=== PATIENT | female | born 1950 | race Caucasian/White ===

== ENCOUNTER → 2017-05-20 | Outpatient (CLI) | payer OTHER ==
[~2017-05-20] MED LIST: ASPEC81 PO; CHOL100010 PO; CLCC1250 PO; CLON1TAB3 PO; CLOP1TAB15 PO; FENO48TA9 PO; LSX20 PO; ROPI2TAB6 PO; SIMV10TA2 PO
--- NOTE | 2017-05-20 13:45 | MAMMOGRAPHY REPORT ---
BILATERAL DIGITAL SCREENING MAMMOGRAM TOMOSYNTHESIS WITH CAD: 05/20/2017 TECHNIQUE: Breast tomosynthesis in addition to standard 2D mammography was performed. Current study was also evaluated with a Computer Aided Detection (CAD) system. COMPARISON: Comparison is made to exams dated: 06/04/2016 ultrasound, 05/19/2016 mammogram, 05/14/20 15 mammogram, 05/10/2014 mammogram, 05/09/2013 mammogram, and 05/07/2012 mammogram - [facility]. BREAST COMPOSITION: The tissue of both breasts is heterogeneously dense, which may obscure small mas ses. FINDINGS: No suspicious masses, calcifications, or areas of architectural distortion are noted in ei ther breast. There has been no significant interval change compared to prior exams. Linear scar trent ers denote scars on bilateral breasts. There are stable postsurgical and postbiopsy changes in the r ight upper outer quadrant. Bilateral benign-appearing calcifications are not significantly changed. Nodular asymmetry in the left inferior breast is stable. IMPRESSION: ACR BI-RADS CATEGORY 2: BENIGN There is no mammographic evidence of malignancy. A 1 year screening mammogram is recommended. The pa tient will receive written notification of the results. Approximately 10% of breast cancers are not detected with mammography. A negative mammographic report should not delay biopsy if a clinically suggestive mass is present. Kait Cardoso M.D. /:05/20/2017 12:40:39 Customer Support Advisor: Elayne MORA)(Ap), [facility] letter sent: Normal 1/2 BI-RADS Code: ACR BI-RADS Category 2: Benign
== END | disposition home or self-care (01) ==
LOC: C.MAMM 08:44
PROVIDERS: ATTEND Internal Medicine
DX: Z12.31 Encounter for screening mammogram for malignant neoplasm of breast (principal)

== ENCOUNTER 2017-10-30 15:41 | Emergency (ER) | payer OTHER ==
[~2017-10-30] VITALS: Ht 160 cm; Wt 79.8 kg
[2017-10-30 15:49] VITALS: TEMP 36.8; Ht 160 cm; Wt 79.8 kg
[2017-10-30] MEDS ORDERED: CHOL100010 PO (16:07)
[2017-10-30] MEDS ORDERED: ASPI-319 PO (16:07)
[2017-10-30] MEDS ORDERED: CALC1WAF PO (16:07)
[2017-10-30] MEDS ORDERED: OPTIRAY 320 IV PRN (16:15)
--- NOTE | 2017-10-30 16:16 | EMERGENCY ROOM VISIT NOTE ---
ED Visit Note First contact with patient: 15:55 I have seen and examined this patient with Asif Abarca and generally agree with the treatment plan as discussed. Current/Historical Medications Scheduled Aspirin Enteric Coated (Ecotrin Or Generic), 81 MG PO DAILY Calcium Carbonate (Calcium Carbonate), 500 MG PO DAILY Cholecalciferol (Vitamin D), 1,000 INTER.UNIT PO DAILY Clonazepam (Klonopin), 1 MG PO HS Fenofibrate (Tricor), 48 MG PO DAILY Ropinirole (Requip), 1 MG PO QPM Simvastatin (Zocor), 10 MG PO HS Allergies Coded Allergies: No Known Allergies (Unverified , 10/30/17) Vital Signs Date Time Temp Pulse Resp B/P (MAP) Pulse Ox O2 Delivery O2 Flow Rate FiO2 10/30/17 15:49 36.8 106 20 113/69 93 Room Air Laboratory Results Test 10/30/17 16:05 Departure Information Referrals Jose Antonio Storey D.O. (PCP) Patient Instructions My [facility]
[2017-10-30 16:51] VITALS: O2SAT 92
[2017-10-30 16:57] LABS: BASO % 0.5 %; BASO ABS # 0.04 K/uL (0-0.2); EOS % 1.7 %; EOS ABS # 0.13 K/uL (0-0.5); HEMATOCRIT 45.8 % (37-47); HEMOGLOBIN 16.3 g/dL (12.0-16.0); IG# 0.04 K/uL (0.00-0.02); LYMPH ABS # 2.82 K/uL (1.2-3.4); MEAN CELL VOLUME 85.6 fL (80-100); MEAN CORPUSCULAR HEMOGLOBIN 30.5 pg (25-34); MEAN CORPUSCULAR HGB CONC 35.6 g/dl (32-36); MEAN PLATELET VOLUME 9.7 fL (7.4-10.4); MONO % 7.7 %; NEUT % 53.6 %; NEUT ABS # 4.21 K/uL (1.4-6.5); PLATELET COUNT 218 K/uL (130-400); RED CELL DISTRIBUTION WIDTH CV 14.2 % (11.5-14.5); RED CELL DISTRIBUTION WIDTH SD 44.2 fL (36.4-46.3); WHITE BLOOD COUNT 7.84 K/uL (4.8-10.8)
[2017-10-30 17:06] LABS: PTT PATIENT 24.9 SECONDS (21.0-31.0)
[2017-10-30 17:19] LABS: ALBUMIN 4.1 gm/dl (3.4-5.0); CALCIUM 9.1 mg/dl (8.5-10.1); CREATININE 1.14 mg/dl (0.60-1.20); POTASSIUM 3.7 mmol/L (3.5-5.1)
[2017-10-30 17:22] LABS: TOTAL PROTEIN 8.1 gm/dl (6.4-8.2)
--- NOTE | 2017-10-30 18:57 | DIAGNOSTIC IMAGING REPORT ---
ABDOMEN AND PELVIS CT WITH IV AND ORAL CONTRAST CT DOSE: 424.06 mGy.cm HISTORY: Acute left-sided abdominal pain. L sided abd pain, black stools, watery stools. diverticulosis TECHNIQUE: Multiaxial CT images of the abdomen and pelvis were performed following the use of intravenous and oral contrast. A dose lowering technique was utilized adhering to the principles of ALARA. COMPARISON STUDY: None. FINDINGS: Mild subsegmental bibasilar atelectasis. No pneumatosis or pneumoperitoneum. Imaged inferior cardiac chambers are mildly enlarged. Trace pericardial effusion. Prior cholecystectomy. Hepatic steatosis. No focal hepatic mass lesions or intrahepatic biliary ductal dilation. Spleen, pancreas and adrenal glands are within normal limits. Bilateral renal cysts. Calcifications of the inferior pole right kidney measuring up to 4 mm suggest calcified septa within the renal cyst or nonobstructing renal calculi. No ureteral calculi or obstructive uropathy. Ureters and bladder are unremarkable. Prior hysterectomy. No adnexal mass lesions. Moderate calcification of the aorta without aneurysm. No bulky adenopathy. Small sliding-type hiatal hernia. No small bowel obstruction. Colonic diverticulosis without acute diverticulitis. Normal appendix. Soft tissues are unremarkable. Bones appear intact. Multilevel facet arthrosis. IMPRESSION: 1. Colonic diverticulosis without diverticulitis. 2. No bowel obstruction or focal bowel wall thickening. 3. Prior cholecystectomy and hysterectomy. 4. Calcifications of the inferior pole right kidney suggest calcified septa of a lower pole cyst or less likely represent nonobstructing nephrolithiasis. No ureteral calculi or hydronephrosis. Electronically signed by: Chinmay Nunez M.D. 10/30/2017 6:55 PM Dictated Date/Time: 10/30/2017 6:49 PM
--- NOTE | 2017-10-30 19:45 | EMERGENCY ROOM VISIT NOTE ---
History First contact with patient: 15:55 Chief Complaint: DIARRHEA Stated Complaint: WATERY/BLACK STOOL Nursing Triage Summary: pt reports diarrhea started 1-2 weeks ago liquid sometimes black denies any n/v . abd tender to uch across lower portion and radiates across lower back History of Present Illness The patient is a 67 year old female who presents to the Emergency Room via private vehicle with complaints of "watery/black stool". The patient states that for the past 2 weeks she has been experiencing dark brown stool that progressed to a small in caliber stool and now black in nature with water. She states that her last colonoscopy was 5 years ago. She denies any bright red blood per rectum. She takes no blood thinners. She notes minimal abdominal pain in the lower quadrants favoring the left side. She rates the pain as a 4/ 10. She denies any chest pain, shortness of breath, fevers, chills, dysuria. Review of Systems A complete 10-point Review of Systems was discussed with the patient, with pertinent positives and negatives listed in the History of Present Illness. All remaining Review of Systems questions can be considered negative unless otherwise specified. Past Medical/Surgical History No pertinent Family History No pertinent Social History Smoking Status: Former Smoker Alcohol Use: none Drug Use: none Marital Status: Housing Status: lives with family Occupation Status: employed Current/Historical Medications Scheduled Aspirin Enteric Coated (Ecotrin Or Generic), 81 MG PO DAILY Calcium Carbonate (Calcium Carbonate), 500 MG PO DAILY Cholecalciferol (Vitamin D), 1,000 INTER.UNIT PO DAILY Clonazepam (Klonopin), 1 MG PO HS Fenofibrate (Tricor), 48 MG PO DAILY Ropinirole (Requip), 1 MG PO QPM Simvastatin (Zocor), 10 MG PO HS Physical Exam Vital Signs Date Time Temp Pulse Resp B/P (MAP) Pulse Ox O2 Delivery O2 Flow Rate FiO2 10/30/17 20:04 86 20 122/78 95 Room Air 10/30/17 18:07 72 16 111/70 93 Room Air 10/30/17 17:30 75 18 132/69 92 Room Air 10/30/17 17:19 81 10/30/17 16:51 86 18 142/76 93 Room Air 10/30/17 16:51 92 Room Air 10/30/17 15:49 36.8 106 20 113/69 93 Room Air Physical Exam VITAL SIGNS - Vital signs and nursing notes were reviewed. Stable and slightly tachycardic. GENERAL - 67-year-old female appearing her stated age who is in no acute distress. Communicates well with provider and answers questions appropriately. SKIN - Without rashes. HEAD - NC/AT. EYES - PERRL with EOMI bilaterally. Sclera anicteric. EARS - No deformities of external structures noted on gross examination bilaterally. NOSE - Midline and without cyanosis. No epistaxis or purulent drainage noted. MOUTH/OROPHARYNX - Without perioral cyanosis. NECK - Neck with FROM. Supple to palpation. No lymphadenopathy noted. No nuchal rigidity. LUNGS - Chest wall symmetric without accessory muscle use, intercostals retractions, or central cyanosis. Normal vesicular breath sounds CTA B/L. No wheezes, rales, or rhonchi appreciated. CARDIAC - RRR with S1/S2. No murmur, rubs, or gallops appreciated. ABDOMEN - Abdominal contour normal without pulsations or visible masses. BS normoactive all four quadrants. Lower abd tenderness noted. No rebound tenderness. No palpable masses, hepatosplenomegaly, or ascites noted. EXTREMITIES - No clubbing or peripheral cyanosis. No pretibial edema present.+5/ 5 strength noted in UE/LE bilaterally. NEUROLOGIC - Cranial nerves II through XII grossly intact. Sensory intact to light touch throughout. PSYCH - A&O, and cooperates fully with examiner. Pt is very pleasant and interacts well with examiner. RECTAL: After obtaining consent, and in the presence of the female nurse I did perform a rectal exam in the patient. Negative exam. Negative Hemoccult. Medical Decision & Procedures ER Provider Diagnostic Interpretation: ABDOMEN AND PELVIS CT WITH IV AND ORAL CONTRAST CT DOSE: 424.06 mGy.cm HISTORY: Acute left-sided abdominal pain. L sided abd pain, black stools, watery stools. diverticulosis TECHNIQUE: Multiaxial CT images of the abdomen and pelvis were performed following the use of intravenous and oral contrast. A dose lowering technique was utilized adhering to the principles of ALARA. COMPARISON STUDY: None. FINDINGS: Mild subsegmental bibasilar atelectasis. No pneumatosis or pneumoperitoneum. Imaged inferior cardiac chambers are mildly enlarged. Trace pericardial effusion. Prior cholecystectomy. Hepatic steatosis. No focal hepatic mass lesions or intrahepatic biliary ductal dilation. Spleen, pancreas and adrenal glands are within normal limits. Bilateral renal cysts. Calcifications of the inferior pole right kidney measuring up to 4 mm suggest calcified septa within the renal cyst or nonobstructing renal calculi. No ureteral calculi or obstructive uropathy. Ureters and bladder are unremarkable. Prior hysterectomy. No adnexal mass lesions. Moderate calcification of the aorta without aneurysm. No bulky adenopathy. Small sliding-type hiatal hernia. No small bowel obstruction. Colonic diverticulosis without acute diverticulitis. Normal appendix. Soft tissues are unremarkable. Bones appear intact. Multilevel facet arthrosis. IMPRESSION: 1. Colonic diverticulosis without diverticulitis. 2. No bowel obstruction or focal bowel wall thickening. 3. Prior cholecystectomy and hysterectomy. 4. Calcifications of the inferior pole right kidney suggest calcified septa of a lower pole cyst or less likely represent nonobstructing nephrolithiasis. No ureteral calculi or hydronephrosis. Electronically signed by: Chinmay Nunez M.D. 10/30/2017 6:55 PM Dictated Date/Time: 10/30/2017 6:49 PM Laboratory Results 10/30/17 16:45 Red Blood Count 5.35, Mean Corpuscular Volume 85.6, Mean Corpuscular Hemoglobin 30.5, Mean Corpuscular Hemoglobin Concent 35.6, Mean Platelet Volume 9.7, Neutrophils (%) (Auto) 53.6, Lymphocytes (%) (Auto) 36.0, Monocytes (%) (Auto) 7.7, Eosinophils (%) (Auto) 1.7, Basophils (%) (Auto) 0.5, Neutrophils # (Auto) 4.21, Lymphocytes # (Auto) 2.82, Monocytes # (Auto) 0.60, Eosinophils # (Auto) 0.13, Basophils # (Auto) 0.04 10/30/17 16:45 Test 10/30/17 16:40 10/30/17 16:45 10/30/17 19:52 Urine Color YELLOW Urine Appearance CLEAR (CLEAR) Urine pH 5.5 (4.5-7.5) Urine Specific Gallagher 1.025 (1.000-1.030) Urine Protein NEG (NEG) Urine Glucose (UA) NEG (NEG) Urine Ketones NEG (NEG) Urine Occult Blood NEG (NEG) Urine Nitrite NEG (NEG) Urine Bilirubin NEG (NEG) Urine Urobilinogen NEG (NEG) Urine Leukocyte Esterase SMALL (NEG) Urine RBC (Auto) /hpf (0-4) Urine RBC 0-4 /hpf (0-4) Urine WBC 1-5 /hpf (0-5) Urine Epithelial Cells >30 /lpf (0-5) Urine Calcium Oxalate Crystals PRESENT (NONE PRSENT) Urine Bacteria NEG (NEG) White Blood Count 7.84 K/uL (4.8-10.8) Red Blood Count 5.35 M/uL (4.2-5.4) Hemoglobin 16.3 g/dL (12.0-16.0) Hematocrit 45.8 % (37-47) Mean Corpuscular Volume 85.6 fL (80-100) Mean Corpuscular Hemoglobin 30.5 pg (25-34) Mean Corpuscular Hemoglobin Concent 35.6 g/dl (32-36) Platelet Count 218 K/uL (130-400) Mean Platelet Volume 9.7 fL (7.4-10.4) Neutrophils (%) (Auto) 53.6 % Lymphocytes (%) (Auto) 36.0 % Monocytes (%) (Auto) 7.7 % Eosinophils (%) (Auto) 1.7 % Basophils (%) (Auto) 0.5 % Neutrophils # (Auto) 4.21 K/uL (1.4-6.5) Lymphocytes # (Auto) 2.82 K/uL (1.2-3.4) Monocytes # (Auto) 0.60 K/uL (0.11-0.59) Eosinophils # (Auto) 0.13 K/uL (0-0.5) Basophils # (Auto) 0.04 K/uL (0-0.2) RDW Standard Deviation 44.2 fL (36.4-46.3) RDW Coefficient of Variation 14.2 % (11.5-14.5) Immature Granulocyte % (Auto) 0.5 % Immature Granulocyte # (Auto) 0.04 K/uL (0.00-0.02) Prothrombin Time 10.4 SECONDS (9.0-12.0) Prothromb Time International Ratio 1.0 (0.9-1.1) Activated Partial Thromboplast Time 24.9 SECONDS (21.0-31.0) Partial Thromboplastin Ratio 1.0 Anion Gap 7.0 mmol/L (3-11) Est Creatinine Clear Calc Drug Dose 49.2 ml/min Estimated GFR () 58.4 Estimated GFR (Non- 50.4 BUN/Creatinine Ratio 13.4 (10-20) Calcium Level 9.1 mg/dl (8.5-10.1) Magnesium Level 2.2 mg/dl (1.8-2.4) Total Bilirubin 0.7 mg/dl (0.2-1) Aspartate Amino Transf (AST/SGOT) 24 U/L (15-37) Alanine Aminotransferase (ALT/SGPT) 49 U/L (12-78) Alkaline Phosphatase 80 U/L (45-117) Total Protein 8.1 gm/dl (6.4-8.2) Albumin 4.1 gm/dl (3.4-5.0) Globulin 4.0 gm/dl (2.5-4.0) Albumin/Globulin Ratio 1.0 (0.9-2) Lipase 169 U/L (73-393) Date/Time Source Procedure Growth Status 10/30/17 19:52 Stool C.difficile Toxin B Gene (PCR) - Final No C. difficile toxin B gene detected Complete Medical Decision Patient was seen and evaluated as above in room A09. Review was performed of nursing notes and vital signs. After obtaining a thorough history and physical examination the above work up was performed. She presents to us today with black watery stools 2 weeks. She is nontoxic on exam and at no point throughout her stay exhibited a surgical abdomen. CBC reveals no leukocytosis. Hemoglobin slightly elevated. Coags normal. She is afebrile. Metabolic panel reveals no evidence of emergent kidney or liver failure. Urine reveals small leukocytes. Epithelial cells. I suspect contaminated sample. She was able to produce stool at the end of her visit here that will be sent for testing. I believe a bland diet is warranted as the CT did not reveal any evidence of acute process. Case was discussed with the attending physician. I felt she was stable for outpatient management. She is to return with worsening. She is to call her family doctor first thing Thursday morning to schedule follow-up. The patient was educated upon management, had questions answered prior to discharge, and was discharged home in good condition. Case was discussed with the attending physician. I attest that I have personally reviewed the patient medication list. I attest that I have reviewed the patient's blood pressure and it was found to be normal. In the evaluation and treatment of this patient the following differential diagnoses were entertained: Diverticulitis, appendicitis, UTI, sepsis, acute intra-abdominal abnormality Impression Primary Impression: Diarrhea Departure Information Dispostion Home / Self-Care Condition GOOD Referrals Jose Antonio Storey D.O. (PCP) Amanda Baugh, DO Patient Instructions ED Diet [place], My [facility] Additional Instructions You have been treated in the Emergency Department your Abdominal Pain and diarrhea. Laboratory results and imaging studies have ruled out any emergent causes for your abdominal pain which would warrant admission or surgery. I do recommend following up with the family doctor and potentially a GI specialist. You may need a colonoscopy. Please call your family doctor first thing Thursday morning to schedule follow-up. I recommend a bland diet. Please refer to the attached handout regarding this. For pain control, you can use the following [id number] medicines (if >12 yo): - Regular strength (325mg/tab) Tylenol (acetaminophen) 2 tabs every 4-6 hours as needed. Do not exceed 12 tablets in a 24 hour period. Avoid taking more than 3 grams (3000 mg) of Tylenol per day. This includes any other sources of acetaminophen you may take on a regular basis. Please be careful taking any ibuprofen. Drink plenty of water and stay well hydrated. As with any trip to the Emergency Department, you should follow-up with your Primary Care Provider from today's visit. Return to the emergency department if your symptoms persist despite treatment plan outlined above or if the following symptoms occur: increased fevers, chills , worsening nausea/vomiting, blood in your stool or urine.
[2017-10-30 20:04] VITALS: BP 122/78; PULSE 86; O2SAT 95
== END 2017-10-30 20:06 | disposition home or self-care (01) ==
LOC: C.EDB 15:43 → C.EDA 20:06
DX: R19.7 Diarrhea, unspecified (principal); Z87.891 Personal history of nicotine dependence

== ENCOUNTER 2021-11-22 20:12 | Observation (INO) ==
[2021-11-22 20:57] LABS: Hematocrit (blood only) 45.9 % (37-47); Hemoglobin 15.8 g/dL (12.0-16.0); Mean Corpuscular Hemoglobin 30.2 pg (25-34); Mean Corpuscular Hgb Conc 34.4 g/dL (32-36); Mean Corpuscular Volume 87.8 fL (80-100); Mean Platelet Volume 10.2 fL (7.4-10.4); Platelet Count 202 K/uL (130-400); RDW Coefficient of Variation 14.2 % (11.5-14.5); RDW Standard Deviation 45.8 fL (36.4-46.3); Red Blood Count 5.23 M/uL (4.2-5.4); White Blood Count 9.17 K/uL (4.8-10.8)
[2021-11-22 21:08] LABS: Partial Thromboplastin Ratio 0.9; Partial Thromboplastin Time 25.3 Seconds (21.0-31.0); Prothrombin Time 10.6 Seconds (9.0-12.0)
[2021-11-22 21:20] LABS: Albumin Globulin Ratio 1.5 (0.9-2); Albumin Level 4.3 gm/dl (3.4-5.0); Bilirubin,Total 0.4 mg/dl (0.2-1.0); Calcium 9.3 mg/dl (8.5-10.1); Creatinine Clr Calc Pharmacy 52.2 ml/min; Est GFR (Non-African American) 53.5 ml/min; Globulin 2.8 gm/dl (2.5-4.0); Potassium 3.6 mmol/L (3.5-5.1); Total Protein 7.1 gm/dl (6.0-8.3)
[2021-11-22] MEDS ORDERED: OPTIRAY 320 100ml IV ONE (22:15)
--- NOTE | 2021-11-22 22:28 | CT Scan Report ---
CT SCAN OF THE ABDOMEN AND PELVIS WITH IV CONTRAST CLINICAL HISTORY: Generalized abdominal pain. Lower GI bleeding. COMPARISON STUDY: Abdominal CT dated 10/30/2017. TECHNIQUE: Following the IV administration of 93 cc of Optiray 320, CT scan of the abdomen and pelvi s is performed from the lung bases to the proximal femora. Images are reviewed in the axial, sagittal , and coronal planes. IV contrast was administered without complication. A dose lowering technique wa s utilized adhering to the principles of ALARA. CT DOSE: 573.80 mGy.cm FINDINGS: Lung bases: The heart is normal in size and without pericardial effusion. The lung bases are clear no ting bibasilar scarring/atelectasis. There is a small hiatal hernia. Liver: The contrast-enhanced liver is enlarged, measuring 18.7 cm in length. The liver demonstrates d iminished attenuation indicating steatosis. There is no intrahepatic biliary ductal dilatation. The h epatic veins and portal veins are patent. Gallbladder: Surgically absent noting clips in the gallbladder fossa. Spleen: Normal in size and attenuation. Pancreas: Unremarkable. Adrenal glands: Unremarkable. Kidneys: The contrast enhanced kidneys are normal in size and without hydronephrosis. The kidneys enh ance symmetrically. Tiny nonobstructing calculi are seen in the right lower pole. Abdominal vasculature: The abdominal aorta is normal in course and caliber noting advanced atheroscle rotic calcification. Bowel: There is moderate colonic diverticulosis without CT evidence of acute diverticulitis. No bowel obstruction is identified. The appendix is well-visualized and normal. Peritoneum: There is no intraperitoneal free air or abdominal ascites. Lymphadenopathy: None. Pelvic viscera: The bladder is normal as visualized. The uterus is surgically absent. No adnexal lesi on is seen. Skeletal structures: The skeletal structures are osteopenic. There is mild lumbosacral spondylosis. N o lytic or blastic lesions are seen. IMPRESSION: 1. No acute infectious or inflammatory findings are identified in the abdomen or pelvis. 2. Colonic diverticulosis without CT evidence of acute diverticulitis. 3. Hepatomegaly and mild hepatic steatosis. 4. Right-sided nephrolithiasis. 5. Additional findings as above. ACT 112: Negative or not required by law. Electronically signed by: Monico Dinero M.D. 11/22/2021 10:26 PM
--- NOTE | 2021-11-22 23:20 | Emergency Department Note ---
ED Visit Note Physician Evaluation Note: I have personally evaluated and examined this patient. I agree with assessment and plan of Mary Lou Cadena PA-C. Pleasant 71-year-old female with bright red bloody bowel movements several times this evening. Initially evaluated by DEVONTE and work-up included labs and CT imaging. CT is unremarkable. Labs show normal hemoglobin. Patient did have a large bloody bowel movement while here. Hemodynamically she has been stable. She is on no blood thinners other than aspirin 81 mg daily. On examination she is calm cooperative no distress. Given the amount of bleeding she is having at her age plan will be for hospitalization for further monitoring. Patient is on board with this plan. Bryant Bermudez MD
[2021-11-22 23:38] LABS: Hematocrit (blood only) 43.1 % (37-47); Hemoglobin 15.1 g/dL (12.0-16.0)
[2021-11-23] MEDS ORDERED: PANTOprazole 80 MG in DEXTROSE 5% 100 ML IV ONE (00:06)
[2021-11-23 00:21] LABS: Magnesium 2.2 mg/dl (1.7-2.4)
--- NOTE | 2021-11-23 00:54 | Emergency Department Note ---
History of Present Illness General Chief complaint: Rectal Bleed Stated complaint: RECTAL BLEED, BRIGHT RED Time Seen by Provider: 11/22/21 21:51 History of Present Illness This 71-year-old on aspirin presents to the ER complaining of 2 episodes of rectal bleeding Location: Rectal Quality: Painless rectal bleeding Severity: Moderate Duration: Today Timing: Today Context: Patient was concerned and came in Modifying factors: better with rest; worse with bowel movement no recent colonoscopy. Patient states she feels lightheaded when she stands up. No black stool. Patient denies abdominal pain, fever, chills, flulike illness. No history of GI bleeding in the past. Home Medications Medication Instructions Recorded Confirmed Type alendronate 70 mg tablet 70 mg PO WK 11/22/21 11/22/21 History aspirin 81 mg tablet,delayed 81 mg PO DAILY 11/22/21 11/22/21 History release atorvastatin 20 mg tablet 20 mg PO DAILY 11/22/21 11/22/21 History calcium carbonate 500 mg calcium 500 mg PO DAILY 11/22/21 11/22/21 History (1,250 mg) tablet cholecalciferol (vitamin D3) 25 25 mcg PO DAILY 11/22/21 11/22/21 History mcg (1,000 unit) tablet (Vitamin D3) clonazepam 1 mg tablet 1 mg PO HS 11/22/21 11/22/21 History escitalopram oxalate 20 mg tablet 20 mg PO QAM 11/22/21 11/22/21 History gabapentin 300 mg capsule 300 mg PO BID 11/22/21 11/22/21 History trazodone 50 mg tablet 50 mg PO HS 11/22/21 11/22/21 History Allergies Allergy/AdvReac Type Severity Reaction Status Date / Time No Known Allergies Allergy Unverified 11/22/21 21:58 Past Med/Surg History Medical History Anxiety TIA (transient ischemic attack) Surgical History (Updated 11/23/21 @ 00:50 by Fatuma Cadena PA-C) No pertinent past surgical history Social History Smoking Status: Former smoker Preferred Language: Kinyarwanda Feels Safe at Home: Yes Review of Systems A total of 10 systems reviewed and were otherwise negative Physical Exam Vital Signs Vital Signs - 24 hr 11/22/21 20:15 11/22/21 22:31 11/22/21 23:30 Temperature 36.7 C Temperature Source Temporal Artery Scan Pulse Rate 89 78 Pulse Rate [Apical] 82 Pulse Rhythm Regular Pulse Strength Normal Respiratory Rate 18 21 17 Respiratory Effort / Characteristics Non-Labored Spontaneous Non-Labored Respiratory Depth Normal Normal Blood Pressure 147/76 H 153/95 H Blood Pressure [Right Arm] 153/89 H Blood Pressure Mean 99 114 Blood Pressure Mean [Right Arm] 110 Blood Pressure Position Sitting Pulse Oximetry 93 94 93 Oxygen Delivery Method Room Air Sepsis Recent Fever Within 48 Hours No Sepsis New/Unexplained Change in Mental Status N/A Sepsis Action Taken by Nursing No Action Required 11/22/21 23:36 11/23/21 00:00 11/23/21 00:30 Temperature Temperature Source Pulse Rate 81 83 88 Pulse Rate [Apical] Pulse Rhythm Pulse Strength Respiratory Rate 20 19 22 Respiratory Effort / Characteristics Respiratory Depth Blood Pressure 153/95 H 148/91 H 164/119 H Blood Pressure [Right Arm] Blood Pressure Mean 114 110 134 Blood Pressure Mean [Right Arm] Blood Pressure Position Pulse Oximetry 92 94 94 Oxygen Delivery Method Sepsis Recent Fever Within 48 Hours Sepsis New/Unexplained Change in Mental Status Sepsis Action Taken by Nursing VITALS: Vitals are noted on the nurse's note and reviewed by myself. Vital signs stable GENERAL: Pleasant female, in no acute distress, nondiaphoretic, well-developed well-nourished. SKIN: The skin was without rashes, erythema, edema, or bruising. There is no tenting of the skin. Capillary reflex less than 2 seconds. HEAD: Normocephalic atraumatic. EARS: External auditory canals clear, EYES: Pupils equal round and reactive to light and accommodation. Conjunctivae without injection, sclerae without icterus. Extraocular movements intact. NOSE: Patent, turbinates without inflammation or discharge. MOUTH: Mucous membranes moist. Pharynx without erythema or exudate. Uvula midline. Airway patent. Tongue does not deviate. NECK: Supple without nuchal rigidity. No lymphadenopathy. No thyromegaly. Cervical spine is nontender. No JVD. HEART: Regular rate and rhythm LUNGS: Clear to auscultation bilaterally without wheezes, rales or rhonchi. No retractions or accessory muscle use. ABDOMEN: Positive bowel sounds x 4. Normal tympanic percussion. Soft, tender left lower quadrant, without masses or organomegaly. Jennings sign negative. No guarding or rebound tenderness. No CVA tenderness Rectal exam: Bright red blood per rectum. No obvious fissures or tears. MUSCULOSKELETAL: No muscle atrophy, erythema, or edema noted. NEURO: Patient was alert and oriented to person place and time. Normal sensation to light and sharp touch. No focal neurological deficits. Course Administered Medications Discontinued Medications Pantoprazole Sodium 80 mg/ (Dextrose) 120 mls @ 400 mls/hr IV NOW ONE Stop: 11/23/21 00:23 Last Infusion: 11/23/21 00:49 Dose: 0 mls/hr Documented by: [id number] Admin: 11/23/21 00:30 Dose: 400 mls/hr Documented by: [id number] Ioversol (Optiray 320 100ml) 93 ml IV ONCE ONE Stop: 11/22/21 22:16 Last Admin: 11/22/21 22:16 Dose: 93 ml Documented by: [id number] Medical Decision Making Medical Records Attestation: I reviewed the patient's medical records. Home Medications Current Medication List: was personally reviewed by me Laboratory Data Attestation: I reviewed the patient's lab results. Result diagrams: 11/22/21 23:28 11/22/21 20:46 Lab Results 11/22/21 11/22/21 11/22/21 Range/Units 20:46 20:46 20:46 WBC 9.17 (4.8-10.8) K/uL RBC 5.23 (4.2-5.4) M/uL Hgb 15.8 (12.0-16.0) g/dL Hct 45.9 (37-47) % MCV 87.8 (80-100) fL MCH 30.2 (25-34) pg MCHC 34.4 (32-36) g/dL RDW Std Deviation 45.8 (36.4-46.3) fL RDW Coeff of Sharona 14.2 (11.5-14.5) % Plt Count 202 (130-400) K/uL MPV 10.2 (7.4-10.4) fL PT 10.6 (9.0-12.0) Seconds INR 1.0 (0.9-1.1) APTT 25.3 (21.0-31.0) Seconds PTT Ratio 0.9 Sodium (136-145) mmol/L Potassium (3.5-5.1) mmol/L Chloride (98-107) mmol/L Carbon Dioxide (21-32) mmol/L Anion Gap (3-11) BUN (6-23) mg/dl Creatinine (0.6-1.2) mg/dl Est Cr Clr Drug Dosing ml/min Est GFR ( Amer) ml/min Est GFR (Non-Af Amer) ml/min BUN/Creatinine Ratio (10-20) Glucose (70-99(Fasting)) mg/dl Calcium (8.5-10.1) mg/dl Magnesium (1.7-2.4) mg/dl Total Bilirubin (0.2-1.0) mg/dl AST (13-39) U/L ALT (7-52) U/L Alkaline Phosphatase (34-104) U/L Troponin I High Sens (0-14) pg/ml Total Protein (6.0-8.3) gm/dl Albumin (3.4-5.0) gm/dl Globulin (2.5-4.0) gm/dl Albumin/Globulin Ratio (0.9-2) SARS-CoV-2, RNA, NAAT (NEGATIVE) Blood Type A Negative Antibody Screen NEGATIVE 11/22/21 11/22/21 11/22/21 Range/Units 20:46 22:58 23:28 WBC (4.8-10.8) K/uL RBC (4.2-5.4) M/uL Hgb 15.1 (12.0-16.0) g/dL Hct 43.1 (37-47) % MCV (80-100) fL MCH (25-34) pg MCHC (32-36) g/dL RDW Std Deviation (36.4-46.3) fL RDW Coeff of Sharona (11.5-14.5) % Plt Count (130-400) K/uL MPV (7.4-10.4) fL PT (9.0-12.0) Seconds INR (0.9-1.1) APTT (21.0-31.0) Seconds PTT Ratio Sodium 141 (136-145) mmol/L Potassium 3.6 (3.5-5.1) mmol/L Chloride 106 (98-107) mmol/L Carbon Dioxide 26 (21-32) mmol/L Anion Gap 9 (3-11) BUN 17 (6-23) mg/dl Creatinine 1.06 (0.6-1.2) mg/dl Est Cr Clr Drug Dosing 52.2 ml/min Est GFR ( Amer) 62.0 ml/min Est GFR (Non-Af Amer) 53.5 ml/min BUN/Creatinine Ratio 16.0 (10-20) Glucose 106 H (70-99(Fasting)) mg/dl Calcium 9.3 (8.5-10.1) mg/dl Magnesium 2.2 (1.7-2.4) mg/dl Total Bilirubin 0.4 (0.2-1.0) mg/dl AST 29 (13-39) U/L ALT 30 (7-52) U/L Alkaline Phosphatase 56 (34-104) U/L Troponin I High Sens 5.9 (0-14) pg/ml Total Protein 7.1 (6.0-8.3) gm/dl Albumin 4.3 (3.4-5.0) gm/dl Globulin 2.8 (2.5-4.0) gm/dl Albumin/Globulin Ratio 1.5 (0.9-2) SARS-CoV-2, RNA, NAAT (NEGATIVE) Blood Type Antibody Screen 11/22/21 Range/Units 23:28 WBC (4.8-10.8) K/uL RBC (4.2-5.4) M/uL Hgb (12.0-16.0) g/dL Hct (37-47) % MCV (80-100) fL MCH (25-34) pg MCHC (32-36) g/dL RDW Std Deviation (36.4-46.3) fL RDW Coeff of Sharona (11.5-14.5) % Plt Count (130-400) K/uL MPV (7.4-10.4) fL PT (9.0-12.0) Seconds INR (0.9-1.1) APTT (21.0-31.0) Seconds PTT Ratio Sodium (136-145) mmol/L Potassium (3.5-5.1) mmol/L Chloride (98-107) mmol/L Carbon Dioxide (21-32) mmol/L Anion Gap (3-11) BUN (6-23) mg/dl Creatinine (0.6-1.2) mg/dl Est Cr Clr Drug Dosing ml/min Est GFR ( Amer) ml/min Est GFR (Non-Af Amer) ml/min BUN/Creatinine Ratio (10-20) Glucose (70-99(Fasting)) mg/dl Calcium (8.5-10.1) mg/dl Magnesium (1.7-2.4) mg/dl Total Bilirubin (0.2-1.0) mg/dl AST (13-39) U/L ALT (7-52) U/L Alkaline Phosphatase (34-104) U/L Troponin I High Sens (0-14) pg/ml Total Protein (6.0-8.3) gm/dl Albumin (3.4-5.0) gm/dl Globulin (2.5-4.0) gm/dl Albumin/Globulin Ratio (0.9-2) SARS-CoV-2, RNA, NAAT NEGATIVE (NEGATIVE) Blood Type Antibody Screen Imaging Data Attestation: I personally reviewed and interpreted this imaging study as follows: Radiologist's Impression: Abdomen/Pelvis CT 11/22/21 21:51 CT SCAN OF THE ABDOMEN AND PELVIS WITH IV CONTRAST CLINICAL HISTORY: Generalized abdominal pain. Lower GI bleeding. COMPARISON STUDY: Abdominal CT dated 10/30/2017. TECHNIQUE: Following the IV administration of 93 cc of Optiray 320, CT scan of the abdomen and pelvis is performed from the lung bases to the proximal femora. Images are reviewed in the axial, sagittal, and coronal planes. IV contrast was administered without complication. A dose lowering technique was utilized adhering to the principles of ALARA. CT DOSE: 573.80 mGy.cm FINDINGS: Lung bases: The heart is normal in size and without pericardial effusion. The lung bases are clear noting bibasilar scarring/atelectasis. There is a small hiatal hernia. Liver: The contrast-enhanced liver is enlarged, measuring 18.7 cm in length. The liver demonstrates diminished attenuation indicating steatosis. There is no intrahepatic biliary ductal dilatation. The hepatic veins and portal veins are patent. Gallbladder: Surgically absent noting clips in the gallbladder fossa. Spleen: Normal in size and attenuation. Pancreas: Unremarkable. Adrenal glands: Unremarkable. Kidneys: The contrast enhanced kidneys are normal in size and without hydronephrosis. The kidneys enhance symmetrically. Tiny nonobstructing calculi are seen in the right lower pole. Abdominal vasculature: The abdominal aorta is normal in course and caliber noting advanced atherosclerotic calcification. Bowel: There is moderate colonic diverticulosis without CT evidence of acute diverticulitis. No bowel obstruction is identified. The appendix is well- visualized and normal. Peritoneum: There is no intraperitoneal free air or abdominal ascites. Lymphadenopathy: None. Pelvic viscera: The bladder is normal as visualized. The uterus is surgically absent. No adnexal lesion is seen. Skeletal structures: The skeletal structures are osteopenic. There is mild lumbosacral spondylosis. No lytic or blastic lesions are seen. IMPRESSION: 1. No acute infectious or inflammatory findings are identified in the abdomen or pelvis. 2. Colonic diverticulosis without CT evidence of acute diverticulitis. 3. Hepatomegaly and mild hepatic steatosis. 4. Right-sided nephrolithiasis. 5. Additional findings as above. ACT 112: Negative or not required by law. Electronically signed by: Monico Dinero M.D. 11/22/2021 10:26 PM [facility] Narrative Prior records/ancillary studies reviewed. Triage Nursing notes reviewed. Additional history obtained from the family. The patient's history was concerning for possible gastrointestinal bleeding. Differential diagnosis: Etiologies such as diverticulosis, AVM, coagulopathy, colitis, inflammatory bowel disease, malignancy, Naz-Fischer tear, esophagitis, peptic ulcer disease, variceal bleed, gastritis, epistaxis, fissure, hemorrhoids, as well as others were entertained. Physical exam: As above. The patients vital signs were stable. ER treatment provided: An order was placed for continuous cardiac monitoring. The monitor shows a rate of 60-100 with a sinus rhythm. IV fluids On reassessment the patient felt better. Diagnostics interpreted by me: ECG: Ordered for lightheadedness EKG: Normal sinus, normal intervals, T wave flattening in the anterior septal leads, rate of 84. Impression normal sinus rhythm with T wave flattening in the anterior septal leads interpreted by myself I think arrhythmia is unlikely. EKG shows normal sinus rhythm with no interval abnormalities such as QT prolongation or WPW. There are no findings to suggest Brugada syndrome. Cardiac monitoring in the emergency department reveals no tachycardic or bradycardic dysrhythmia. Hypertrophic cardiomyopathy was consider ed but there are no clear historical elements pointing toward this. EKG is not suggestive. The QRS voltage is not extremely large and there are no suggestive Q waves. The labs revealed stable H&H Imaging studies: As above Consultation: A consultation was placed with the hospitalist. The case was discussed and diagnostics were reviewed. The patient was evaluated in the ER for further tr eatment. This appears to be consistent with symptomatic rectal bleeding. Repeat H&H is ordered. Medicine is consulted. She will be admitted. By the evaluation outlined above emergent etiologies such as esophageal perforation, peptic ulcer disease, variceal bleed, coagulopathy, gastritis, epistaxis, malignancy, inflammatory bowel disease, as well as others were deemed relatively unlikely. The pt informed about the findings as listed above. All questions were answered and pleased with the treatment. The chart was completed utilizing [employer] voice recognition software. Grammatical errors, random word insertions, pronoun errors, and incomplete sentences are an occassional consequence of this system due to software limitations, ambient noise, and hardware issues. Any formal questions or concerns about the content, text, or information contained within the body of this dictation should be directly addressed to the physician plumber's assistant for clarification. Impression & Plan Acute lower GI bleeding Discharge Plan Visit Data Chief Complaint: Rectal Bleed Stated Complaint: RECTAL BLEED, BRIGHT RED ED Provider: Bryant Bermudez ED Midlevel Provider: Fatuma Cadena Discharge Problem: Acute lower GI bleeding Patient Disposition: Being Evaluated by Hospitalist Condition: Good Forms Stand Alone Forms: My [facility] Prescriptions Prescriptions: No Action atorvastatin 20 mg tablet 20 mg PO DAILY RF: 0 trazodone 50 mg tablet 50 mg PO HS RF: 0 alendronate 70 mg tablet 70 mg PO WK RF: 0 clonazepam 1 mg tablet 1 mg PO HS RF: 0 aspirin 81 mg Tablet,Delayed Release (Dr/Ec) 81 mg PO DAILY RF: 0 calcium carbonate 500 mg calcium (1,250 mg) Tablet 500 mg PO DAILY RF: 0 gabapentin 300 mg capsule 300 mg PO BID RF: 0 escitalopram oxalate 20 mg tablet 20 mg PO QAM RF: 0 cholecalciferol (vitamin D3) [Vitamin D3] 25 mcg (1,000 unit) Tablet 25 mcg PO DAILY RF: 0 Referrals Referrals: Jareth Aguilar MD [Primary Care Provider] -
--- NOTE | 2021-11-23 03:31 | History & Physical Report ---
Date of Service November 23, 2021 Assessment & Plan (1) GI bleed: Plan: Combined UGI B/L GIB (History esophagitis/diverticulosis/hemorrhoids on past endoscopy) Patient hemodynamically stable diastolic heart failure (EF 55%, TTE), patient euvolemic hx CVA /PVD hyperlipidemia on statin Rx past tobacco abuse OBS GMF IV PPI for UGI B Appropriate to hold home aspirin for now given bleeding. Follow H&H, transfuse PRBC if hemoglobin less than 8 and or for symptomatic anem ia (hx CVA/PVD as per records) GI consult Re: GI bleed N.p.o. until patient seen by GI in anticipation of procedure DVT prophylaxis with SCDs Re: GI bleed Full code Text document was generated using [employer] voice recognition software. It may contain grammatical or spelling errors. Kindly contact undersigned for clarification of any documentation item in question. History of Present Illness Chief Complaint: GI bleed Primary Care Provider: Jareth Aguilar MD History obtained from patient and records. Medical history significant for diastolic heart failure (EF 55%, TTE), CVA , PVD, hyperlipidemia, migraine, RLS, diverticulosis, hemorrhoids, past tobacco abuse. 2 days history of rectal bleeding, bright red blood mixed with black stools. Somewhat loose as per patient. No known sick contacts/antibiotic intake/out-of-town travel. No prior episodes. Achy abdominal/flank discomfort. No chest pain, no SOB, no dizziness. No emesis. No OTC NSAID intake. Medical History as above 2020 colonoscopy showed sigmoid diverticulosis, hemorrhoids 2010 EGD showed grade A reflux esophagitis Surgical History : TAHBSO, breast biopsy, carpal tunnel surgery cholecystectomy, cataract surgery Family History : DM, aortic aneurysm, stroke, heart disease Personal/Social history : No tobacco abuse, occasional EtOH intake, retired bank boss Allergies Allergy/AdvReac Type Severity Reaction Status Date / Time No Known Allergies Allergy Unverified 11/22/21 21:58 Home Medications Medication Instructions Recorded Confirmed Type alendronate 70 mg tablet 70 mg PO WK 11/22/21 11/22/21 History aspirin 81 mg tablet,delayed 81 mg PO DAILY 11/22/21 11/22/21 History release atorvastatin 20 mg tablet 20 mg PO DAILY 11/22/21 11/22/21 History calcium carbonate 500 mg calcium 500 mg PO DAILY 11/22/21 11/22/21 History (1,250 mg) tablet cholecalciferol (vitamin D3) 25 25 mcg PO DAILY 11/22/21 11/22/21 History mcg (1,000 unit) tablet (Vitamin D3) clonazepam 1 mg tablet 1 mg PO HS 11/22/21 11/22/21 History escitalopram oxalate 20 mg tablet 20 mg PO QAM 11/22/21 11/22/21 History gabapentin 300 mg capsule 300 mg PO BID 11/22/21 11/22/21 History trazodone 50 mg tablet 50 mg PO HS 11/22/21 11/22/21 History pantoprazole 40 mg tablet,delayed 40 mg PO DAILY #30 tab 11/23/21 Rx release (Protonix) Past Med/Surg History Medical History Anxiety TIA (transient ischemic attack) Surgical History (Updated 11/23/21 @ 00:50 by Fatuma Cadena PA-C) No pertinent past surgical history Social History Smoking Status: Former smoker Cigarettes Per Day: 1.5 PPD; Smoking End Date: 2005; Second Hand Exposure: No; Tobacco Cessation Education Requested by Patient: No Hx Alcohol Use: Yes Alcohol type: wine Hx Substance Use: No Preferred Language: Yoruba Sdc Teacher Required: No Beliefs That Will Affect Care: None Current Living Situation: Significant Other Current Living Situation Comment: Lives w/ significant other (Roman Rain) Other Information That Helps Us Care for You: No Feels Safe at Home: Yes Safety Concerns: Feels Safe At This Time Assistive Devices: Denture - Upper, Denture - Lower and Glasses Review of Systems Review of Systems: As per HPI, all other systems reviewed and negative Physical Exam Physical Exam: GENERAL: Comfortable, pleasant, no respiratory distress SKIN: Normal color, warm HEENT: Bespectacled, [place] palpebral conjunctivae, no ptosis, dry buccal mucosa NECK : Supple, short neck, no tenderness CHEST : CTA, no tenderness HEART : RRR, no obvious murmurs ABDOMEN: Some distention, minimal hypogastric tenderness EXTREMITIES : Minimal LE swelling, no LE tenderness, no other conspicuous deformities noted NEUROLOGIC : Coherent, no facial asymmetry, no other gross focality Results & Data Results & Data ([facility]) Vital Signs (Past 12 Hours) Vital Signs Temp Pulse Pulse Resp BP BP Pulse Ox 11/23/21 01:00 90 21 152/94 H 96 11/23/21 00:30 88 22 164/119 H 94 11/23/21 00:00 83 19 148/91 H 94 11/22/21 23:36 81 20 153/95 H 92 11/22/21 23:30 78 17 153/95 H 93 11/22/21 22:31 82 21 153/89 H 94 11/22/21 20:15 36.7 C 89 18 147/76 H 93 Laboratory Results Laboratory Results WBC 9.17 K/uL (4.8-10.8) 11/22/21 20:46 RBC 5.23 M/uL (4.2-5.4) 11/22/21 20:46 Hgb 15.1 g/dL (12.0-16.0) 11/22/21 23:28 Hct 43.1 % (37-47) 11/22/21 23:28 MCV 87.8 fL (80-100) 11/22/21 20:46 MCH 30.2 pg (25-34) 11/22/21 20:46 MCHC 34.4 g/dL (32-36) 11/22/21 20:46 RDW Std Deviation 45.8 fL (36.4-46.3) 11/22/21 20:46 RDW Coeff of Sharona 14.2 % (11.5-14.5) 11/22/21 20:46 Plt Count 202 K/uL (130-400) 11/22/21 20:46 MPV 10.2 fL (7.4-10.4) 11/22/21 20:46 PT 10.6 Seconds (9.0-12.0) 11/22/21 20:46 INR 1.0 (0.9-1.1) 11/22/21 20:46 APTT 25.3 Seconds (21.0-31.0) 11/22/21 20:46 PTT Ratio 0.9 11/22/21 20:46 Sodium 141 mmol/L (136-145) 11/22/21 20:46 Potassium 3.6 mmol/L (3.5-5.1) 11/22/21 20:46 Chloride 106 mmol/L (98-107) 11/22/21 20:46 Carbon Dioxide 26 mmol/L (21-32) 11/22/21 20:46 Anion Gap 9 (3-11) 11/22/21 20:46 BUN 17 mg/dl (6-23) 11/22/21 20:46 Creatinine 1.06 mg/dl (0.6-1.2) 11/22/21 20:46 Est Cr Clr Drug Dosing 52.2 ml/min 11/22/21 20:46 Est GFR ( Amer) 62.0 ml/min 11/22/21 20:46 Est GFR (Non-Af Amer) 53.5 ml/min 11/22/21 20:46 BUN/Creatinine Ratio 16.0 (10-20) 11/22/21 20:46 Glucose 106 mg/dl (70-99(Fasting)) H 11/22/21 20:46 Calcium 9.3 mg/dl (8.5-10.1) 11/22/21 20:46 Magnesium 2.2 mg/dl (1.7-2.4) 11/22/21 20:46 Total Bilirubin 0.4 mg/dl (0.2-1.0) 11/22/21 20:46 AST 29 U/L (13-39) 11/22/21 20:46 ALT 30 U/L (7-52) 11/22/21 20:46 Alkaline Phosphatase 56 U/L (34-104) 11/22/21 20:46 Troponin I High Sens 5.9 pg/ml (0-14) 11/22/21 22:58 Total Protein 7.1 gm/dl (6.0-8.3) 11/22/21 20:46 Albumin 4.3 gm/dl (3.4-5.0) 11/22/21 20:46 Globulin 2.8 gm/dl (2.5-4.0) 11/22/21 20:46 Albumin/Globulin Ratio 1.5 (0.9-2) 11/22/21 20:46 SARS-CoV-2, RNA, NAAT NEGATIVE (NEGATIVE) 11/22/21 23:28 Blood Type A Negative 11/22/21 20:46 Antibody Screen NEGATIVE 11/22/21 20:46 Impressions Abdomen/Pelvis CT 11/22/21 21:51 CT SCAN OF THE ABDOMEN AND PELVIS WITH IV CONTRAST CLINICAL HISTORY: Generalized abdominal pain. Lower GI bleeding. COMPARISON STUDY: Abdominal CT dated 10/30/2017. TECHNIQUE: Following the IV administration of 93 cc of Optiray 320, CT scan of the abdomen and pelvis is performed from the lung bases to the proximal femora. Images are reviewed in the axial, sagittal, and coronal planes. IV contrast was administered without complication. A dose lowering technique was utilized adhering to the principles of ALARA. CT DOSE: 573.80 mGy.cm FINDINGS: Lung bases: The heart is normal in size and without pericardial effusion. The lung bases are clear noting bibasilar scarring/atelectasis. There is a small hiatal hernia. Liver: The contrast-enhanced liver is enlarged, measuring 18.7 cm in length. The liver demonstrates diminished attenuation indicating steatosis. There is no intrahepatic biliary ductal dilatation. The hepatic veins and portal veins are patent. Gallbladder: Surgically absent noting clips in the gallbladder fossa. Spleen: Normal in size and attenuation. Pancreas: Unremarkable. Adrenal glands: Unremarkable. Kidneys: The contrast enhanced kidneys are normal in size and without hydronephrosis. The kidneys enhance symmetrically. Tiny nonobstructing calculi are seen in the right lower pole. Abdominal vasculature: The abdominal aorta is normal in course and caliber noting advanced atherosclerotic calcification. Bowel: There is moderate colonic diverticulosis without CT evidence of acute diverticulitis. No bowel obstruction is identified. The appendix is well- visualized and normal. Peritoneum: There is no intraperitoneal free air or abdominal ascites. Lymphadenopathy: None. Pelvic viscera: The bladder is normal as visualized. The uterus is surgically absent. No adnexal lesion is seen. Skeletal structures: The skeletal structures are osteopenic. There is mild lumbosacral spondylosis. No lytic or blastic lesions are seen. IMPRESSION: 1. No acute infectious or inflammatory findings are identified in the abdomen or pelvis. 2. Colonic diverticulosis without CT evidence of acute diverticulitis. 3. Hepatomegaly and mild hepatic steatosis. 4. Right-sided nephrolithiasis. 5. Additional findings as above. ACT 112: Negative or not required by law. Electronically signed by: Monico Dinero M.D. 11/22/2021 10:26 PM Diagnostic Findings EKG as per my interpretation : Rate 85, NSR, normal axis, T wave abnormalities septal leads
[2021-11-23] MEDS ORDERED: ACETAMINOPHEN 325 MG TAB PO PRN (03:36)
[2021-11-23] MEDS ORDERED: LACTATED RINGER'S 1,000 ML IV ONE (03:36)
[2021-11-23 03:41] LABS: Basophils # (auto) 0.03 K/uL (0-0.2); Basophils % (auto) 0.3 %; Eosinophils # (auto) 0.09 K/uL (0-0.5); Eosinophils % (auto) 0.9 %; Hematocrit (blood only) 45.2 % (37-47); Hemoglobin 15.4 g/dL (12.0-16.0); Immature Granulocytes # (auto) 0.03 K/uL (0.00-0.02); Immature Granulocytes % (auto) 0.3 %; Lymphocytes # (auto) 1.72 K/uL (1.2-3.4); Lymphocytes % (auto) 17.6 %; Mean Corpuscular Hemoglobin 29.7 pg (25-34); Mean Corpuscular Hgb Conc 34.1 g/dL (32-36); Mean Corpuscular Volume 87.1 fL (80-100); Mean Platelet Volume 9.9 fL (7.4-10.4); Monocytes # (auto) 1.01 K/uL (0.11-0.59); Monocytes % (auto) 10.4 %; Neutrophils # (auto) 6.87 K/uL (1.4-6.5); Neutrophils % (auto) 70.5 %; Platelet Count 152 K/uL (130-400); RDW Coefficient of Variation 14.1 % (11.5-14.5); RDW Standard Deviation 45.1 fL (36.4-46.3); Red Blood Count 5.19 M/uL (4.2-5.4); White Blood Count 9.75 K/uL (4.8-10.8)
[2021-11-23 04:01] LABS: BUN Creatinine Ratio 18.4 (10-20); Calcium 9.1 mg/dl (8.5-10.1); Creatinine Clr Calc Pharmacy 56.5 ml/min; Est GFR (African American) 68.2 ml/min; Est GFR (Non-African American) 58.9 ml/min; Potassium 3.6 mmol/L (3.5-5.1)
[2021-11-23] MEDS ORDERED: traMADol HCL 50 MG TABLET PO PRN (04:22)
[2021-11-23] MEDS ORDERED: PROMETHAZINE HCL 12.5 MG in SODIUM CHLORIDE 0.9% 50 ML IV PRN (04:22)
[2021-11-23 06:58] LABS: Appearance Urine Clear (Clear); Bacteria Urine Automated Negative (Negative); Bilirubin Urine Negative (Negative); Blood Urine Trace (Negative); Cast Urine Automated 0 /lpf (0-5); Color Urine Yellow; Epithelial Cell Urine Auto >30 /lpf (0-5); Glucose Urine UA Negative (Negative); Ketones Urine Negative (Negative); Leukocyte Esterase Urine 1+ (Negative); Nitrite Urine Negative (Negative); Protein Urine Negative (Negative); RBC Urine Automated 0-4 /hpf (0-4); Specific Gravity Urine 1.026 (1.000-1.030); Urobilinogen Urine Negative (Negative); pH Urine 6.5 (4.5-7.5)
[2021-11-23] MEDS ORDERED: PANTOprazole 40 MG in SYRINGE 0 ML IV SCH (09:00)
[2021-11-23] MEDS ORDERED: ATORVASTATIN 20 MG TAB PO SCH (09:00)
[2021-11-23] MEDS ORDERED: GABAPENTIN 300 MG CAP PO SCH (09:00)
[2021-11-23] MEDS ORDERED: ESCITALOPRAM OXALATE 20 MG TAB PO SCH (09:00)
--- NOTE | 2021-11-23 13:02 | Hospitalist Progress Note ---
Date of Service November 23, 2021 Assessment & Plan (1) GI bleed: Plan: Lower GI bleed, likely diverticular bleed- if so anticipate to be self limited. - 1st episode. no abd pain. No NSAIDs use, not on anticoagulation. No prior hematemesis or hematochezia. - CT with no acute findings but colonic diverticulosis without diverticulitis. - Last colonoscopy 01/2021 was incomplete per patient - H&H stable, vitals stable. currently npo pending gi eval. Likely will need colonoscopy- IP vs OP. - Continue to trend H&H. Currently no indication for transfusion- however if Hb drops down significantly or symptomatic will need transfusion and further work up. Continue gentle IVF CT A/P 11/22/21 1. No acute infectious or inflammatory findings are identified in the abdomen or pelvis. 2. Colonic diverticulosis without CT evidence of acute diverticulitis. 3. Hepatomegaly and mild hepatic steatosis. 4. Right-sided nephrolithiasis. Chronic diastolic heart failure (EF 55%, TTE)- euvolemic. not on diuretics. Monitor volume status H/o CVA /PVD- ASA on hold. resume as indicated HLD- on statin Anxiety/depression- on lexapro, klonopin, trazodone DVT prophylaxis- SCDs, chemoprophylaxis not indicated given ongoing gi bleed Full code Dispo- pending GI eval and further work up Admission and Anticipated Discharge Date Admission Date: November 23, 2021 Subjective Feels fine. States this is her first GI bleed. Had couple episodes down in the emergency but nothing since coming to the floors. Bright red rectal bleeding, no clots. Denies any abdominal pain, fever, chills, nausea, vomiting. States she had colonoscopy done in Jan 2021 which was incomplete as she vomiting during the procedure and is due for January this year. Physical Exam Physical Exam: General: Lying comfortably in bed, not in distress, on room air HEENT: EOMI, SHAYNE, MMM Chest: Clear breath sounds bilaterally, no wheezes or crackles CVS: Regular rate and rhythm, normal heart sounds, no murmur Abdomen: Soft, non tender, not distended, normal bowel sounds Neuro: Awake, alert, oriented, conversing well, non focal Extremities: No cyanosis, clubbing or edema Results & Data Results & Data ([place]) Vital Signs (Past 12 Hours) Vital Signs Temp Pulse Pulse Pulse Resp BP BP 11/23/21 11:54 36.6 C 82 18 123/75 11/23/21 08:22 36.9 C 79 18 106/65 11/23/21 04:22 37 C 98 H 18 134/79 11/23/21 03:38 89 20 122/73 11/23/21 01:00 90 21 152/94 H Pulse Ox 11/23/21 11:54 91 11/23/21 08:22 90 11/23/21 04:22 92 11/23/21 03:38 92 11/23/21 01:00 96 Laboratory Results Short CBC 11/22/21 11/22/21 11/23/21 Range/Units 20:46 23:28 03:31 WBC 9.17 9.75 (4.8-10.8) K/uL Hgb 15.8 15.1 15.4 (12.0-16.0) g/dL Hct 45.9 43.1 45.2 (37-47) % Plt Count 202 152 (130-400) K/uL BMP 11/22/21 11/23/21 20:46 03:31 Sodium 141 139 Potassium 3.6 3.6 Chloride 106 107 Carbon Dioxide 26 22 BUN 17 18 Creatinine 1.06 0.98 Glucose 106 H 113 H Calcium 9.3 9.1 Liver Function 11/22/21 Range/Units 20:46 Total Bilirubin 0.4 (0.2-1.0) mg/dl AST 29 (13-39) U/L ALT 30 (7-52) U/L Alkaline Phosphatase 56 (34-104) U/L Albumin 4.3 (3.4-5.0) gm/dl Urine 11/23/21 Range/Units 06:00 Urine Color Yellow Urine Appearance Clear (Clear) Urine pH 6.5 (4.5-7.5) Ur Specific [place] 1.026 (1.000-1.030) Urine Protein Negative (Negative) Urine Glucose (UA) Negative (Negative) Medications Administered Current Inpatient Medications Acetaminophen (Acetaminophen 325 Mg Tab) 325 mg PO Q6H PRN PRN Reason: Mild Pain Stop: 12/23/21 03:35 Last Admin: 11/23/21 08:59 Dose: 325 mg Documented by: Atorvastatin Calcium (Atorvastatin 20 Mg Tab) 20 mg PO DAILY [facility] Stop: 12/23/21 08:59 Last Admin: 11/23/21 08:32 Dose: 20 mg Documented by: Clonazepam (Clonazepam 1 Mg Tab) 1 mg PO HS [facility] Stop: 12/23/21 20:59 Escitalopram Oxalate (Escitalopram Oxalate 20 Mg Tab) 20 mg PO QAM [facility] Stop: 12/23/21 08:59 Last Admin: 11/23/21 08:32 Dose: 20 mg Documented by: Gabapentin (Gabapentin 300 Mg Cap) 300 mg PO BID [facility] Stop: 12/23/21 08:59 Last Admin: 11/23/21 08:32 Dose: 300 mg Documented by: Lactated Ringer's (Lr) 1,000 mls @ 60 mls/hr IV .[id number] ONE Stop: 11/23/21 20:15 Last Admin: 11/23/21 04:29 Dose: 60 mls/hr Documented by: Pantoprazole Sodium 40 mg/ (Syringe) 10 mls @ 5 mls/min IV BID [facility] Stop: 12/23/21 08:59 Last Admin: 11/23/21 08:33 Dose: 5 mls/min Documented by: Promethazine HCl 12.5 mg/ (Sodium Chloride) 50.5 mls @ 202 mls/hr IV Q6H PRN PRN Reason: Nausea And Vomiting Stop: 12/23/21 04:21 Tramadol HCl (Tramadol Hcl 50 Mg Tablet) 25 - 50 mg PO Q4H PRN PRN Reason: Pain Stop: 12/23/21 04:21 Trazodone HCl (Trazodone Hcl 50 Mg Tab) 50 mg PO [facility] Stop: 12/23/21 20:59
--- NOTE | 2021-11-23 13:10 | Gastrointestinal Consultation ---
Date of Consultation November 23, 2021 Supervising Physician Co-Signing Physician Notes No signs of an ugi bleed- her bun is normal. She could take a ppi low dose (20 mg once daily) for a week. Suspect this was a self limited diverticular bleed. She is already on recall through [facility] for a follow-up colonoscopy. Ok to dc home from a gi perspective, resume prior diet. Ok to restart aspirin. History of Present Illness Reason for Consultation: ? rectal bleeding Requesting Physician: Ismael Patel Attending Physician: Carlos Ring MD History of Present Illness 71 yo fm with a history of cva, pvd, hl, migraine on aspirin daily, admitted through the ER for reports of rectal bleeding, ? dark stools. Admitted overnite- stable vs, stable hemodynamics. Started on an IV PPI. Seen today at the bedside, sleeping but arousable. Denies any further bleeding today per report to me, no hematemesis, no hematochezia, no belly pain. No recent nsaid use, on a daily aspiring. Last colonoscopy in 02/09 with sigmoid diverticulosis. Overall feeling better just sleepy. Allergies Allergy/AdvReac Type Severity Reaction Status Date / Time No Known Allergies Allergy Unverified 11/22/21 21:58 Home Medications Medication Instructions Recorded Confirmed Type alendronate 70 mg tablet 70 mg PO WK 11/22/21 11/22/21 History aspirin 81 mg tablet,delayed 81 mg PO DAILY 11/22/21 11/22/21 History release atorvastatin 20 mg tablet 20 mg PO DAILY 11/22/21 11/22/21 History calcium carbonate 500 mg calcium 500 mg PO DAILY 11/22/21 11/22/21 History (1,250 mg) tablet cholecalciferol (vitamin D3) 25 25 mcg PO DAILY 11/22/21 11/22/21 History mcg (1,000 unit) tablet (Vitamin D3) clonazepam 1 mg tablet 1 mg PO HS 11/22/21 11/22/21 History escitalopram oxalate 20 mg tablet 20 mg PO QAM 11/22/21 11/22/21 History gabapentin 300 mg capsule 300 mg PO BID 11/22/21 11/22/21 History trazodone 50 mg tablet 50 mg PO HS 11/22/21 11/22/21 History Patient History Medical History Anxiety TIA (transient ischemic attack) Surgical History (Updated 11/23/21 @ 00:50 by Fatuma Cadena PA-C) No pertinent past surgical history Social History Smoking Status: Former smoker Cigarettes Per Day: 1.5 PPD; Smoking End Date: 2005; Second Hand Exposure: No; Tobacco Cessation Education Requested by Patient: No Hx Alcohol Use: Yes Alcohol type: wine Hx Substance Use: No Preferred Language: Lithuanian Maintenance And Operations Supervisor Required: No Beliefs That Will Affect Care: None Current Living Situation: Significant Other Current Living Situation Comment: Lives w/ significant other (Roman Rain) Other Information That Helps Us Care for You: No Feels Safe at Home: Yes Safety Concerns: Feels Safe At This Time Assistive Devices: Denture - Upper, Denture - Lower and Glasses Review of Systems Review of Systems: All systems reviewed & are unremarkable except as noted in HPI & below Physical Exam Physical Exam: Well nourished fm in nad Eyes: PERRL, conjunctivae normal, anicteric sclerae Respiratory: normal respiratory effort, lungs clear to auscultation Gastrointestinal (Abdomen): normal bowel sounds, soft, nontender, no hepatosplenomegaly Neurologic: PERRL, EOMI, accommodation nl, no face palsy, no dysarthria Results & Data ([facility]) Vital Signs (Past 12 Hours) Vital Signs Temp Pulse Pulse Resp BP Pulse Ox 11/23/21 11:54 36.6 C 82 18 123/75 91 11/23/21 08:22 36.9 C 79 18 106/65 90 11/23/21 04:22 37 C 98 H 18 134/79 92 11/23/21 03:38 89 20 122/73 92 Laboratory Results cbc/bmp reviewed- all within normal range CT scan with findings of diverticulosis noted Last colonoscopy from 02/09 reviewed - findings of diverticulosis.
[2021-11-23 13:22] LABS: Hematocrit (blood only) 44.1 % (37-47); Hemoglobin 15.4 g/dL (12.0-16.0)
--- NOTE | 2021-11-23 15:36 | Discharge Summary ---
Date of Service November 23, 2021 Admission HPI Per Admitting Provider History obtained from patient and records. Medical history significant for diastolic heart failure (EF 55%, TTE), CVA , PVD, hyperlipidemia, migraine, RLS, diverticulosis, hemorrhoids, past tobacco abuse. 2 days history of rectal bleeding, bright red blood mixed with black stools. Somewhat loose as per patient. No known sick contacts/antibiotic intake/out-of-town travel. No prior episodes. Achy abdominal/flank discomfort. No chest pain, no SOB, no dizziness. No emesis. No OTC NSAID intake. Medical History as above Surgical History : Family History : Personal/Social history : Admission Exam Per Admitting Provider No exam in H&P note Principal Diagnosis Lower gi bleed, suspected diverticular Discharge Exam General: Lying comfortably in bed, not in distress, on room air HEENT: EOMI, SHAYNE, MMM, no pallor Chest: Clear breath sounds bilaterally, no wheezes or crackles CVS: Regular rate and rhythm, normal heart sounds, no murmur Abdomen: Soft, non tender, not distended, normal bowel sounds Neuro: Awake, alert, oriented, conversing well, non focal Extremities: No cyanosis, clubbing or edema Discharge Data Allergies Allergy/AdvReac Type Severity Reaction Status Date / Time No Known Allergies Allergy Unverified 11/22/21 21:58 Consultations 11/22/21 23:12 ED Decision to Admit Stat 11/22/21 23:21 ED Decision to Admit Stat 11/23/21 04:22 Consult Gastroenterology Routine Ordered Studies 11/22/21 21:51 CT abd pelvis IV con only Stat Laboratory Results WBC 9.75 K/uL (4.8-10.8) 11/23/21 03:31 RBC 5.19 M/uL (4.2-5.4) 11/23/21 03:31 Hgb 15.4 g/dL (12.0-16.0) 11/23/21 13:03 Hct 44.1 % (37-47) 11/23/21 13:03 MCV 87.1 fL (80-100) 11/23/21 03:31 MCH 29.7 pg (25-34) 11/23/21 03:31 MCHC 34.1 g/dL (32-36) 11/23/21 03:31 RDW Std Deviation 45.1 fL (36.4-46.3) 11/23/21 03:31 RDW Coeff of [place] 14.1 % (11.5-14.5) 11/23/21 03:31 Plt Count 152 K/uL (130-400) 11/23/21 03:31 MPV 9.9 fL (7.4-10.4) 11/23/21 03:31 Immature Gran % (Auto) 0.3 % 11/23/21 03:31 Neut % (Auto) 70.5 % 11/23/21 03:31 Lymph % (Auto) 17.6 % 11/23/21 03:31 [place] % (Auto) 10.4 % 11/23/21 03:31 Eos % (Auto) 0.9 % 11/23/21 03:31 Baso % (Auto) 0.3 % 11/23/21 03:31 Neut # (Auto) 6.87 K/uL (1.4-6.5) H 11/23/21 03:31 Lymph # (Auto) 1.72 K/uL (1.2-3.4) 11/23/21 03:31 [place] # (Auto) 1.01 K/uL (0.11-0.59) H 11/23/21 03:31 Eos # (Auto) 0.09 K/uL (0-0.5) 11/23/21 03:31 Baso # (Auto) 0.03 K/uL (0-0.2) 11/23/21 03:31 Immature Gran # (Auto) 0.03 K/uL (0.00-0.02) H 11/23/21 03:31 PT 10.6 Seconds (9.0-12.0) 11/22/21 20:46 INR 1.0 (0.9-1.1) 11/22/21 20:46 APTT 25.3 Seconds (21.0-31.0) 11/22/21 20:46 PTT Ratio 0.9 11/22/21 20:46 Sodium 139 mmol/L (136-145) 11/23/21 03:31 Potassium 3.6 mmol/L (3.5-5.1) 11/23/21 03:31 Chloride 107 mmol/L (98-107) 11/23/21 03:31 Carbon Dioxide 22 mmol/L (21-32) 11/23/21 03:31 Anion Gap 10 (3-11) 11/23/21 03:31 BUN 18 mg/dl (6-23) 11/23/21 03:31 Creatinine 0.98 mg/dl (0.6-1.2) 11/23/21 03:31 Est Cr Clr Drug Dosing 56.5 ml/min 11/23/21 03:31 Est GFR ( Amer) 68.2 ml/min 11/23/21 03:31 Est GFR (Non-Af Amer) 58.9 ml/min 11/23/21 03:31 BUN/Creatinine Ratio 18.4 (10-20) 11/23/21 03:31 Glucose 113 mg/dl (70-99(Fasting)) H 11/23/21 03:31 Calcium 9.1 mg/dl (8.5-10.1) 11/23/21 03:31 Magnesium 2.2 mg/dl (1.7-2.4) 11/22/21 20:46 Total Bilirubin 0.4 mg/dl (0.2-1.0) 11/22/21 20:46 AST 29 U/L (13-39) 11/22/21 20:46 ALT 30 U/L (7-52) 11/22/21 20:46 Alkaline Phosphatase 56 U/L (34-104) 11/22/21 20:46 Troponin I High Sens 5.9 pg/ml (0-14) 11/22/21 22:58 Total Protein 7.1 gm/dl (6.0-8.3) 11/22/21 20:46 Albumin 4.3 gm/dl (3.4-5.0) 11/22/21 20:46 Globulin 2.8 gm/dl (2.5-4.0) 11/22/21 20:46 Albumin/Globulin Ratio 1.5 (0.9-2) 11/22/21 20:46 Urine Color Yellow 11/23/21 06:00 Urine Appearance Clear (Clear) 11/23/21 06:00 Urine pH 6.5 (4.5-7.5) 11/23/21 06:00 Ur Specific [place] 1.026 (1.000-1.030) 11/23/21 06:00 Urine Protein Negative (Negative) 11/23/21 06:00 Urine Glucose (UA) Negative (Negative) 11/23/21 06:00 Urine Ketones Negative (Negative) 11/23/21 06:00 Urine Blood Trace (Negative) H 11/23/21 06:00 Urine Nitrite Negative (Negative) 11/23/21 06:00 Urine Bilirubin Negative (Negative) 11/23/21 06:00 Urine Urobilinogen Negative (Negative) 11/23/21 06:00 Ur Leukocyte Esterase 1+ (Negative) H 11/23/21 06:00 Urine WBC (Auto) 1-5 /hpf (0-5) 11/23/21 06:00 Urine RBC (Auto) 0-4 /hpf (0-4) 11/23/21 06:00 U Hyaline Cast (Auto) 0 /lpf (0-5) 11/23/21 06:00 U Epithel Cells (Auto) >30 /lpf (0-5) H 11/23/21 06:00 Urine Bacteria (Auto) Negative (Negative) 11/23/21 06:00 SARS-CoV-2, RNA, NAAT NEGATIVE (NEGATIVE) 11/22/21 23:28 Blood Type A Negative 11/22/21 20:46 Antibody Screen NEGATIVE 11/22/21 20:46 Impressions Abdomen/Pelvis CT 11/22/21 21:51 CT SCAN OF THE ABDOMEN AND PELVIS WITH IV CONTRAST CLINICAL HISTORY: Generalized abdominal pain. Lower GI bleeding. COMPARISON STUDY: Abdominal CT dated 10/30/2017. TECHNIQUE: Following the IV administration of 93 cc of Optiray 320, CT scan of the abdomen and pelvis is performed from the lung bases to the proximal femora. Images are reviewed in the axial, sagittal, and coronal planes. IV contrast was administered without complication. A dose lowering technique was utilized adhering to the principles of ALARA. CT DOSE: 573.80 mGy.cm FINDINGS: Lung bases: The heart is normal in size and without pericardial effusion. The lung bases are clear noting bibasilar scarring/atelectasis. There is a small hiatal hernia. Liver: The contrast-enhanced liver is enlarged, measuring 18.7 cm in length. The liver demonstrates diminished attenuation indicating steatosis. There is no intrahepatic biliary ductal dilatation. The hepatic veins and portal veins are patent. Gallbladder: Surgically absent noting clips in the gallbladder fossa. Spleen: Normal in size and attenuation. Pancreas: Unremarkable. Adrenal glands: Unremarkable. Kidneys: The contrast enhanced kidneys are normal in size and without hydronephrosis. The kidneys enhance symmetrically. Tiny nonobstructing calculi are seen in the right lower pole. Abdominal vasculature: The abdominal aorta is normal in course and caliber noting advanced atherosclerotic calcification. Bowel: There is moderate colonic diverticulosis without CT evidence of acute diverticulitis. No bowel obstruction is identified. The appendix is well- visualized and normal. Peritoneum: There is no intraperitoneal free air or abdominal ascites. Lymphadenopathy: None. Pelvic viscera: The bladder is normal as visualized. The uterus is surgically absent. No adnexal lesion is seen. Skeletal structures: The skeletal structures are osteopenic. There is mild lumbosacral spondylosis. No lytic or blastic lesions are seen. IMPRESSION: 1. No acute infectious or inflammatory findings are identified in the abdomen or pelvis. 2. Colonic diverticulosis without CT evidence of acute diverticulitis. 3. Hepatomegaly and mild hepatic steatosis. 4. Right-sided nephrolithiasis. 5. Additional findings as above. ACT 112: Negative or not required by law. Electronically signed by: Monico Dinero M.D. 11/22/2021 10:26 PM Hospital Course (1) GI bleed: Lower GI bleed, likely diverticular bleed- likely self limited- no further bleeding or bowel movement after coming to the floor. - 1st episode. no abd pain. No NSAIDs use, not on anticoagulation. No prior hematemesis or hematochezia. - CT with no acute findings but colonic diverticulosis without diverticulitis. - Last colonoscopy 01/2021 with sigmoid diverticulosis - H&H stable, vitals stable. Seen by GI and cleared for discharge with OP colonoscopy. Tolerated diet without issues. Anxious to go home. Recommended overnight observation with Hb trending but she did not want to stay at all. Counseled on when to return to ED and verbalized understanding. Family at bedside. - Recommended f/u with GI as soon as possible for colonoscopy- she states she has one scheduled for January. CT A/P 11/22/21 1. No acute infectious or inflammatory findings are identified in the abdomen or pelvis. 2. Colonic diverticulosis without CT evidence of acute diverticulitis. 3. Hepatomegaly and mild hepatic steatosis. 4. Right-sided nephrolithiasis. history of chronic diastolic heart failure (EF 55%, TTE)- euvolemic. not on diuretics. H/o CVA /PVD- ASA resumed per GI HLD- on statin Anxiety/depression- on lexapro, klonopin, trazodone GERD- having reflux symptoms recently at night per family. Started on PPI. Total Time Total Time Spent Total Time Spent (In Minutes): 40 Discharge Plan Discharge Items Patient Disposition: Home - Self-Care Reason For Visit: GI BLEED Discharge Diagnosis: Hematochezia Activity: Resume your previous activity Non-emergency contact: Primary Care Provider Call non-emergency contact if: you have any medication questions, your symptoms worsen, your pain is unusual for you and you have a fever Follow-up/Referrals: Jareth Aguilar MD [Primary Care Provider] - Diet: Regular Addtl Attending Provider Instructions: We recommended you stay overnight for observation of the bleeding and trending hemoglobin but you did not want to stay Recommend monitoring for bleeding, if recurrent or more bleeding or with fever, chills, abdominal pain, recommend coming back to the emergency Recommend follow up with GI for colonoscopy as soon as possible You can take protonix or over the counter similar medication for the next couple weeks. Pending Studies at Discharge: No Stand-Alone Forms: My [facility] flux - neutrinity, Smoking Cessation Medications and DC Order Prescriptions: New pantoprazole [Protonix] 40 mg tablet,delayed release (DR/EC) 40 mg PO DAILY Qty: 30 RF: 0 Continued atorvastatin 20 mg tablet 20 mg PO DAILY RF: 0 trazodone 50 mg tablet 50 mg PO HS RF: 0 alendronate 70 mg tablet 70 mg PO WK RF: 0 clonazepam 1 mg tablet 1 mg PO HS RF: 0 aspirin 81 mg Tablet,Delayed Release (Dr/Ec) 81 mg PO DAILY RF: 0 calcium carbonate 500 mg calcium (1,250 mg) Tablet 500 mg PO DAILY RF: 0 gabapentin 300 mg capsule 300 mg PO BID RF: 0 escitalopram oxalate 20 mg tablet 20 mg PO QAM RF: 0 cholecalciferol (vitamin D3) [Vitamin D3] 25 mcg (1,000 unit) Tablet 25 mcg PO DAILY RF: 0 Discharge Orders: Discharge Order (Routine); Ordered 11/23/21 Ordered By: Carlos Ring Admission Data Admit Date/Time: 11/23/21 03:34 Attending Provider: Carlos Ring Admit Provider: Ismael Brito Primary Care Provider: Jareth Aguilar Other Providers: Ismael Brito ; Char Jimenez ; Belkis Jean ; Luc Vuong ; Eva Galicia ; Bhavin Ruth ; Tyrone Gonzalez ; Denny Fox ; Stephen Zhou ; Tammi Lowery ; Amanda Baugh ; Gloria Vincent ; Shirley Prather ; Marc Méndez
[2021-11-23] MEDS ORDERED: clonazePAM 1 MG TAB PO SCH (21:00)
[2021-11-23] MEDS ORDERED: traZODone HCL 50 MG TAB PO SCH (21:00)
--- NOTE | 2021-11-24 08:20 | Electrocardiogram Report ---
Test Reason : Blood Pressure : / mmHG Vent. Rate : 084 BPM Atrial Rate : 084 BPM P-R Int : 164 ms QRS Dur : 086 ms QT Int : 372 ms P-R-T Axes : 061 003 046 degrees QTc Int : 439 ms Normal sinus rhythm Nonspecific ST abnormality Abnormal ECG When compared with ECG of 18-OCT-2010 10:46, No significant change was found Confirmed by Benigno Suárez ([id number]) on 11/24/2021 8:19:44 AM Referred By: REFERRED SELF Confirmed By:Benigno Suárez
[2021-11-24] MEDS ORDERED: PANTOprazole 40 MG TAB PO SCH (09:00)
[2021-11-24] MEDS ORDERED: ASPIRIN 81 MG ECTAB PO SCH (09:00)
== END 2021-11-23 15:55 | disposition home or self-care (01) ==
LOC: 2N 20:12 → ED 20:12 → 2N 11-23 03:52